=== PATIENT | male | born 1975 | race American Indian/Alaskan Native ===

== ENCOUNTER 2019-07-29 22:29 | Emergency (ER) | payer OTHER ==
[2019-07-30 00:46] LABS: Basophils # (Auto) 0.2 K/mm3 (0.0-0.1); Basophils % (Auto) 2.4 % (0.0-1.8); Eosinophils # (Auto) 0.3 K/mm3 (0.0-0.4); Eosinophils % (Auto) 5.1 % (0.0-4.3); Hemoglobin 14.8 gm/dl (11.8-15.2); Lymphocytes # (Auto) 3.2 K/mm3 (1.2-5.4); Lymphocytes % (Auto) 48.9 % (13.4-35.0); Mean Corpuscular HGB Conc 34 % (32-34); Mean Corpuscular Volume 85 fl (84-94); Monocytes # (Auto) 0.3 K/mm3 (0.0-0.8); Platelet Count 180 K/mm3 (140-440); Red Blood Count 5.06 M/mm3 (3.65-5.03); Red Cell Distribution Width 13.7 % (13.2-15.2)
[2019-07-30 01:00] LABS: Alanine Aminotransferase 15 units/L (7-56); Albumin 4.4 g/dL (3.9-5); BUN/Creatinine Ratio 9; Blood Urea Nitrogen 10 mg/dL (9-20); Calcium 9.3 mg/dL (8.4-10.2); Hemolysis Index 39
[2019-07-30] MEDS ORDERED: POTASSIUM CHLORIDE ER 20 MEQ TAB PO ONE (01:56)
[2019-07-30 02:05] LABS: Bilirubin,Urine NEG (Negative); Blood,Urine SM (Negative); Color,Urine Straw (Yellow); Mucus,Urine FEW /HPF; Protein,Urine <15 mg/dL mg/dL (Negative); Urobilinogen,Urine < 2.0 mg/dL (<2.0); WBC,Urine < 1.0 /HPF (0.0-6.0)
--- NOTE | 2019-07-30 02:29 | Emergency Department Report ---
ED Abdominal Pain HPI - General Chief Complaint: Abdominal Pain Stated Complaint: ABD/BACK/TOOTH PAIN Time Seen by Provider: 07/30/19 01:54 Source: patient Mode of arrival: Ambulatory Limitations: No Limitations - History of Present Illness Initial Comments: This is a 44-year-old -[place] male who presents to the emergency room with abdominal pain and low back pain for several months. Patient reports worsening pain over the past week it is been intermittent. Past medical history of hypertension. Patient states he was also diagnosed with colitis January 2019 at [facility]. Reports symptoms are similar to the last time. He was constipated and reports feeling constipated now. States pain is radiating from upper abdomen to his back. He denies nausea, vomiting, diarrhea, fever, chills, chest pain, metallic taste. MD Complaint: abdominal pain Onset/Timin -: week(s) Location: LUQ, RUQ Radiation: none Migration to: no migration Severity: moderate Severity scale (0 -10): 5 Quality: aching Consistency: intermittent Worsens With: nothing Associated Symptoms: denies other symptoms - Related Data Home Medications Medication Instructions Recorded Confirmed Last Taken HCTZ 25 mg PO DAILY 07/30/19 07/30/19 Unknown Previous Rx's Medication Instructions Recorded Last Taken Type hydroCHLOROthiazide [HCTZ] 25 mg PO QDAY #30 tablet 07/30/19 Unknown Rx Allergies Allergy/AdvReac Type Severity Reaction Status Date / Time No Known Allergies Allergy Unverified 07/30/19 00:01 ED Review of Systems ROS: Stated complaint: ABD/BACK/TOOTH PAIN Other details as noted in HPI Constitutional: denies: chills, fever Respiratory: denies: cough, shortness of breath, wheezing Cardiovascular: denies: chest pain, palpitations Gastrointestinal: abdominal pain. denies: nausea, diarrhea Musculoskeletal: back pain. denies: joint swelling, arthralgia Skin: denies: rash, lesions Neurological: denies: headache, weakness, paresthesias Psychiatric: denies: anxiety, depression ED Past Medical Hx - Past Medical History Previous Medical History?: Yes Hx Hypertension: Yes Additional medical history: Colitis - Surgical History Past Surgical History?: No - Social History Smoking Status: Current Every Day Smoker Substance Use Type: Marijuana - Medications Home Medications: Home Medications Medication Instructions Recorded Confirmed Last Taken Type HCTZ 25 mg PO DAILY 07/30/19 07/30/19 Unknown History hydroCHLOROthiazide [HCTZ] 25 mg PO QDAY #30 tablet 07/30/19 Unknown Rx ED Physical Exam - General Limitations: No Limitations General appearance: alert, in no apparent distress, obese - Respiratory Respiratory exam: Present: normal lung sounds bilaterally. Absent: respiratory distress - Cardiovascular Cardiovascular Exam: Present: regular rate, normal rhythm. Absent: systolic murmur, diastolic murmur, rubs, gallop - GI/Abdominal GI/Abdominal exam: Present: soft, tenderness (Left upper quadrant), normal bowel sounds. Absent: distended, guarding, rebound, rigid, organomegaly - Back Exam Back exam: Absent: CVA tenderness (R), CVA tenderness (L) - Neurological Exam Neurological exam: Present: alert, oriented X3, normal gait - Psychiatric Psychiatric exam: Present: normal affect, normal mood - Skin Skin exam: Present: warm, dry, intact, normal color. Absent: rash ED Course Vital Signs 07/29/19 07/30/19 22:35 02:37 Temperature 98.2 F Pulse Rate 75 70 Respiratory 18 Rate Blood Pressure 192/128 184/91 O2 Sat by Pulse 100 Oximetry ED Medical Decision Making - Lab Data Result diagrams: 07/30/19 00:19 07/30/19 00:19 Lab Results 07/30/19 07/30/19 07/30/19 Range/Units 00:19 00:19 Unknown WBC 6.5 (4.5-11.0) K/mm3 RBC 5.06 H (3.65-5.03) M/mm3 Hgb 14.8 (11.8-15.2) gm/dl Hct 43.0 (35.5-45.6) % MCV 85 (84-94) fl MCH 29 (28-32) pg MCHC 34 (32-34) % RDW 13.7 (13.2-15.2) % Plt Count 180 (140-440) K/mm3 Lymph % (Auto) 48.9 H (13.4-35.0) % [place] % (Auto) 5.0 (0.0-7.3) % Eos % (Auto) 5.1 H (0.0-4.3) % Baso % (Auto) 2.4 H (0.0-1.8) % Lymph # 3.2 (1.2-5.4) K/mm3 [place] # 0.3 (0.0-0.8) K/mm3 Eos # 0.3 (0.0-0.4) K/mm3 Baso # 0.2 H (0.0-0.1) K/mm3 Seg Neutrophils % 38.6 L (40.0-70.0) % Seg Neutrophils # 2.5 (1.8-7.7) K/mm3 Sodium 140 (137-145) mmol/L Potassium 3.3 L (3.6-5.0) mmol/L Chloride 98.4 (98-107) mmol/L Carbon Dioxide 26 (22-30) mmol/L Anion Gap 19 mmol/L BUN 10 (9-20) mg/dL Creatinine 1.1 (0.8-1.5) mg/dL Estimated GFR > 60 ml/min BUN/Creatinine Ratio 9 % Glucose 110 H (75-100) mg/dL Calcium 9.3 (8.4-10.2) mg/dL Total Bilirubin 0.20 (0.1-1.2) mg/dL AST 18 (5-40) units/L ALT 15 (7-56) units/L Alkaline Phosphatase 79 (35-129) units/L Total Protein 8.0 (6.3-8.2) g/dL Albumin 4.4 (3.9-5) g/dL Albumin/Globulin Ratio 1.2 % Urine Color Straw (Yellow) Urine Turbidity Clear (Clear) Urine pH 5.0 (5.0-7.0) Ur Specific [place] 1.013 (1.003-1.030) Urine Protein <15 mg/dl (Negative) mg/dL Urine Glucose (UA) Neg (Negative) mg/dL Urine Ketones Neg (Negative) mg/dL Urine Blood Sm (Negative) Urine Nitrite Neg (Negative) Urine Bilirubin Neg (Negative) Urine Urobilinogen < 2.0 (<2.0) mg/dL Ur Leukocyte Esterase Neg (Negative) Urine WBC (Auto) < 1.0 (0.0-6.0) /HPF Urine RBC (Auto) 2.0 (0.0-6.0) /HPF U Epithel Cells (Auto) < 1.0 (0-13.0) /HPF Urine Mucus Few /HPF - Radiology Data Radiology results: report reviewed CT ABDOMEN AND PELVIS WITH IV CONTRAST INDICATION: Left sided abdominal pain. COMPARISON: None available. TECHNIQUE: All CT scans at this facility use dose modulation, automated exposure control, iterative reconstruction or weight based dosing, when appropriate, to reduce radiation dose to as low as reasonably achievable. FINDINGS: Lung Bases: No significant abnormality. Skeletal System: No acute abnormality. ABDOMEN: Liver: No significant abnormality. Gallbladder: No significant abnormality. Bile Ducts: No significant abnormality. Pancreas: No significant abnormality. Spleen: No significant abnormality. Adrenals: No significant abnormality. Right Kidney: No significant abnormality. Left Kidney: No significant abnormality. Upper GI tract: No significant abnormality. Lymph Nodes: No significant adenopathy. Aorta: No significant abnormality. Additional Findings: No significant abnormality. PELVIS: Colon: No acute abnormality. Urinary Bladder and Distal Ureters: No significant abnormality. Appendix: No significant abnormality. Lymph Nodes: No significant adenopathy. Additional Findings: None. IMPRESSION: 1. No acute process in the abdomen or pelvis. - Medical Decision Making This is a 44y.o. male that presents with abdominal pain radiating to back for 1 week. Patient is stable and was examined by me. Blood pressure elevated on arri derrek. Given Catapres 0.1 mg p.o. once. Obtained CMP, CBC, & UA. Hypokalemia, given Klor-Con 40 mill EQ p.o. once. All other labs unremarkable. CT of abdomen obtained with no acute process in the abdomen or pelvis. Patient also requesting refills on blood pressure medication. Blood pressure reevaluated and trending down. Refill hydrochlorothiazide 25 mg p.o. daily, #30 with 0 refills. Referral to a primary care doctor for continued care. Discussed plan with patient and agreed to plan. No further questions noted by the patient. Discharged home in stable condition. Follow up with PCP in 2-3 days. Critical care attestation.: If time is entered above; I have spent that time in minutes in the direct care of this critically ill patient, excluding procedure time. ED Disposition Clinical Impression: Medication refill Abdominal pain Qualifiers: Abdominal location: generalized Qualified Code(s): R10.84 - Generalized abdominal pain Disposition: - TO HOME OR SELFCARE Is pt being admited?: No Condition: Stable Instructions: Abdominal Pain (ED), Hypertension (ED) Additional Instructions: Encourage stop smoking to reduce cardiovascular risk. Moderate caffeine consumption is acceptable. Begin and maintain aerobic exercise, with a goal of at least 30 minutes of moderate intensity, dynamic aerobic exercise (walking, jogging, cycling, or swimming) 5 days per week to total 150 minutes as tolerated or recommended by a physician. Take medication daily as prescribed. Follow up with Primary Care Provider in 1 week. Prescriptions: hydroCHLOROthiazide [HCTZ] 25 mg PO QDAY #30 tablet Referrals: [facility] [Outside] - 3-5 Days [facility] [Outside] - 3-5 Days [facility] [Outside] - 3-5 Days Time of Disposition: 03:59
[2019-07-30] MEDS ORDERED: cloNIDine 0.1 MG TAB PO ONE (02:30)
--- NOTE | 2019-07-30 03:42 | Cat Scan Report ---
CT ABDOMEN AND PELVIS WITH IV CONTRAST INDICATION: Left sided abdominal pain. COMPARISON: None available. TECHNIQUE: All CT scans at this facility use dose modulation, automated exposure control, iterative reconstructi on or weight based dosing, when appropriate, to reduce radiation dose to as low as reasonably achieva ble. FINDINGS: Lung Bases: No significant abnormality. Skeletal System: No acute abnormality. ABDOMEN: Liver: No significant abnormality. Gallbladder: No significant abnormality. Bile Ducts: No significant abnormality. Pancreas: No significant abnormality. Spleen: No significant abnormality. Adrenals: No significant abnormality. Right Kidney: No significant abnormality. Left Kidney: No significant abnormality. Upper GI tract: No significant abnormality. Lymph Nodes: No significant adenopathy. Aorta: No significant abnormality. Additional Findings: No significant abnormality. PELVIS: Colon: No acute abnormality. Urinary Bladder and Distal Ureters: No significant abnormality. Appendix: No significant abnormality. Lymph Nodes: No significant adenopathy. Additional Findings: None. IMPRESSION: 1. No acute process in the abdomen or pelvis. Signer Name: Jean Green MD Signed: 07/30/2019 3:37 AM Workstation Name: [id number]
[2019-07-30 04:38] VITALS: BP 162/117
== END 2019-07-30 04:35 | disposition home or self-care (01) ==
LOC: ED 22:29
DX: R10.12 Left upper quadrant pain (principal); R10.11 Right upper quadrant pain; I10 Essential (primary) hypertension; K52.9 Noninfective gastroenteritis and colitis, unspecified; F17.200 Nicotine dependence, unspecified, uncomplicated; F12.10 Cannabis abuse, uncomplicated; Z76.0 Encounter for issue of repeat prescription; Z79.899 Other long term (current) drug therapy
CPT/HCPCS: 36415; 74177; 80053; 81001; 85025; 99284; Q9967

== ENCOUNTER 2020-11-30 22:21 | Emergency (ER) | payer OTHER ==
[2020-11-30] MEDS ORDERED: KETOROLAC 30 MG/1 ML INJ IM ONE (23:14)
[2020-11-30] MEDS ORDERED: dexAMETHasone 20 MG/5 ML VIAL IM ONE (23:14)
--- NOTE | 2020-11-30 23:28 | Emergency Department Report ---
ED Back Pain/Injury HPI - General Chief Complaint: Back Pain/Injury Stated Complaint: LEG/BACK PAIN Source: patient Mode of arrival: Ambulatory - History of Present Illness Initial Comments: Patient is a 45-year-old -[place] male with a history of hypertension and chronic low back pain and sciatica presents to the ED with acute exacerbation of his chronic low back pain that radiates to the right leg for the last 1 week, worse in the last 2 days. Patient states that the pain is sharp, intermittent and worse with any active range of motion or weightbearing. Patient also states that occasionally the right leg experiences tingling sensation with worsening pain. Patient states that the symptoms are typical of his chronic low back pain with sciatica for which she has been taking Robaxin wi th no relief. Patient denies shortness of breath, fall, traumatic injury, chest pain, fever, chills, nausea, vomiting, heavy lifting, dysuria, urinary frequency and urgency, hematuria, penile discharge, abdominal pain or bilateral lower extremity weakness, saddle paresthesia, urinary retention or bowel incontinence. MD Complaint: back pain, other (Right leg pain) -: Gradual, month(s) (6) Similar Symptoms Previously: Yes Place: home Radiation: right leg (right leg) Severity: severe Severity scale (0 -10): 7 Quality: sharp, aching Improves With: none Worsens With: movement, walking Context: turning/twisting, bending Associated Symptoms: denies other symptoms. denies: confusion, chest pain, n umbness, difficulty walking, cough, difficulty urinating, diaphoresis, fever/chills, constipation, headaches, abdominal pain, loss of appetite, nausea/vomiting, rash, seizure, shortness of breath, other - Related Data Home Medications Medication Instructions Recorded Confirmed Last Taken HCTZ 25 mg PO DAILY 07/30/19 07/30/19 Unknown Previous Rx's Medication Instructions Recorded Last Taken Type Baclofen 20 mg PO Q12H PRN #30 tablet 11/30/20 Unknown Rx Gabapentin 300 mg PO BID PRN #60 cap 11/30/20 Unknown Rx Naproxen 500 mg PO Q12H PRN #30 tablet 11/30/20 Unknown Rx amLODIPine 10 mg PO DAILY #30 tab 11/30/20 Unknown Rx hydroCHLOROthiazide [HCTZ] 25 mg PO QDAY #30 tablet 11/30/20 Unknown Rx predniSONE [Deltasone] 60 mg PO QDAY #15 tab 11/30/20 Unknown Rx traMADoL [Ultram] 50 mg PO Q6HR PRN #12 tablet 11/30/20 Unknown Rx Allergies Allergy/AdvReac Type Severity Reaction Status Date / Time No Known Allergies Allergy Unverified 07/30/19 00:01 ED Review of Systems ROS: Stated complaint: LEG/BACK PAIN Other details as noted in HPI Constitutional: denies: chills, fever Eyes: denies: eye pain, eye discharge, vision change ENT: denies: ear pain, throat pain Respiratory: denies: cough, shortness of breath, wheezing Cardiovascular: denies: chest pain, palpitations Endocrine: no symptoms reported Gastrointestinal: denies: abdominal pain, nausea, diarrhea Genitourinary: denies: urgency, dysuria Musculoskeletal: back pain (Low back pain), arthralgia (Right leg), myalgia. denies: joint swelling Skin: denies: rash, lesions Neurological: denies: headache, weakness, paresthesias Psychiatric: denies: anxiety, depression Hematological/Lymphatic: denies: easy bleeding, easy bruising ED Past Medical Hx - Past Medical History Hx Hypertension: Yes Additional medical history: Chronic low back pain with sciatica; colitis - Social History Smoking Status: Current Every Day Smoker Substance Use Type: Marijuana - Medications Home Medications: Home Medications Medication Instructions Recorded Confirmed Last Taken Type HCTZ 25 mg PO DAILY 07/30/19 07/30/19 Unknown History Baclofen 20 mg PO Q12H PRN #30 tablet 11/30/20 Unknown Rx Gabapentin 300 mg PO BID PRN #60 cap 11/30/20 Unknown Rx Naproxen 500 mg PO Q12H PRN #30 tablet 11/30/20 Unknown Rx amLODIPine 10 mg PO DAILY #30 tab 11/30/20 Unknown Rx hydroCHLOROthiazide [HCTZ] 25 mg PO QDAY #30 tablet 11/30/20 Unknown Rx predniSONE [Deltasone] 60 mg PO QDAY #15 tab 11/30/20 Unknown Rx traMADoL [Ultram] 50 mg PO Q6HR PRN #12 tablet 11/30/20 Unknown Rx ED Physical Exam - General General appearance: alert, in no apparent distress - Head Head exam: Present: atraumatic, normocephalic, normal inspection - Eye Eye exam: Present: normal appearance, PERRL, EOMI Pupils: Present: normal accommodation - ENT ENT exam: Present: normal exam, normal orophraynx, mucous membranes moist, TM's normal bilaterally, normal external ear exam - Neck Neck exam: Present: normal inspection, full ROM - Respiratory Respiratory exam: Present: normal lung sounds bilaterally. Absent: respiratory distress, wheezes, rales, rhonchi, chest wall tenderness, accessory muscle use, decreased breath sounds, prolonged expiratory - Cardiovascular Cardiovascular Exam: Present: regular rate, normal rhythm, normal heart sounds. Absent: bradycardia, systolic murmur, diastolic murmur, rubs, gallop - GI/Abdominal GI/Abdominal exam: Present: soft, normal bowel sounds. Absent: tenderness, guarding, hyperactive bowel sounds, hypoactive bowel sounds, organomegaly - Extremities Exam Extremities exam: Present: normal inspection, full ROM, normal capillary refill. Absent: tenderness - Back Exam Back exam: Present: normal inspection, full ROM, tenderness (Palpable lumbosacral paraspinal musculoskeletal tenderness), muscle spasm, paraspinal tenderness. Absent: CVA tenderness (L), vertebral tenderness - Neurological Exam Neurological exam: Present: alert, oriented X3, CN II-XII intact, normal gait, reflexes normal - Psychiatric Psychiatric exam: Present: normal affect, normal mood - Skin Skin exam: Present: warm, dry, intact, normal color. Absent: rash ED Course Vital Signs 11/30/20 22:53 Temperature 98.9 F Pulse Rate 82 Respiratory 18 Rate Blood Pressure 166/111 O2 Sat by Pulse 96 Oximetry ED Medical Decision Making - Medical Decision Making This is a 45-year-old -[place] male with a history of hypertension and chronic low back pain and sciatica presents to the ED with acute exacerbation of his chronic low back pain that radiates to the right leg for the last 1 week, worse in the last 2 days. Patient states that the pain is sharp, intermittent and worse with any active range of motion or weightbearing. Patient also states that occasionally the right leg experiences tingling sensation with worsening pain. Patient states that the symptoms are typical of his chronic low back pain with sciatica for which she has been taking Robaxin with no relief. In the ED, patient is alert and oriented x3 and is not in any distress. Patient however appears to be in significant pain. Patient was treated for pain in the ED and on reevaluation, patient's pain is well controlled medications. Patient will discharge home on pain medications and advised to follow-up with his primary care physician in 5 to 7 days for reevaluation. Patient was advised return to the ED immediately if symptoms get worse. - Differential Diagnosis Chronic back pain; sciatica; muscle spasm; muscle strain; osteoarthritis Critical care attestation.: If time is entered above; I have spent that time in minutes in the direct care of this critically ill patient, excluding procedure time. ED Disposition Clinical Impression: Spasm of muscle of lower back, Acute exacerbation of chronic low back pain, Uncontrolled stage 2 hypertension Chronic low back pain with right-sided sciatica Qualifiers: Back pain laterality: right Qualified Code(s): M54.41 - Lumbago with sciatica, right side Disposition: TO HOME OR SELFCARE Is pt being admited?: No Does the pt Need Aspirin: No Condition: Stable Instructions: Muscle Cramps and Spasms, [id number], Sciatica, [id number], Hypertension, Adult, [id number], Chronic Back Pain, [id number], Hypertension (ED) Additional Instructions: Your symptoms are due to a condition called sciatica which is an impingement of nerves in your low back causing radiating pain to your right leg. Therefore take medication with food, drink plenty of fluids and follow-up with your primary care physician in 5 to 7 days for reevaluation. Return to the ED immediately if symptoms get worse. Prescriptions: amLODIPine 10 mg PO DAILY #30 tab Baclofen 20 mg PO Q12H PRN #30 tablet PRN Reason: Muscle Spasm predniSONE [Deltasone] 60 mg PO QDAY #15 tab Gabapentin 300 mg PO BID PRN #60 cap PRN Reason: Neuropathy hydroCHLOROthiazide [HCTZ] 25 mg PO QDAY #30 tablet Naproxen 500 mg PO Q12H PRN #30 tablet PRN Reason: Pain , Severe (7-10) traMADoL [Ultram] 50 mg PO Q6HR PRN #12 tablet PRN Reason: Pain Referrals: [facility] [Provider Group] - 3-5 Days Time of Disposition: 23:30 Print Language: TURKISH
[2020-11-30 23:34] VITALS: BP 166/111
== END 2020-12-01 00:26 | disposition home or self-care (01) ==
LOC: ED 22:21
DX: M54.41 Lumbago with sciatica, right side (principal); M62.830 Muscle spasm of back; I10 Essential (primary) hypertension; F17.200 Nicotine dependence, unspecified, uncomplicated; Z79.899 Other long term (current) drug therapy
CPT/HCPCS: 96372; 99282; J1100; J1885

== ENCOUNTER 2021-02-09 21:09 | Emergency (ER) | payer SELFPAY ==
[2021-02-10 01:00] VITALS: BP 163/116
--- NOTE | 2021-02-10 01:11 | Emergency Department Report ---
ED Extremity Problem HPI - General Chief complaint: Extremity Injury, Lower Stated complaint: HIP AND LEG PAIN Source: patient Mode of arrival: Ambulatory Limitations: No Limitations - History of Present Illness Initial comments: Patient is a 45-year-old -[place] male with a history of hypertension, chronic low back pain with sciatica and chronic osteoarthritis as well as colitis who presents to the ED with complaint of acute exacerbation of his chronic pain characterized by right hip and right knee pain for the last 2 weeks, worse in the last 2 days. Patient states that the pain is worse with any active range of motion, or in the morning when he wakes up but improves with movement. Patient states that the pain is similar to and typical of his chronic joint pains. Patient denies dizziness, syncope, fall, traumatic injury, numbness and tingling or weakness of lower extremities bilaterally, chest pain, shortness of breath, fever, chills, heavy lifting, nausea and vomiting or diarrhea. MD Complaint: extremity pain (right hip and knee pain), joint paint (right hip and knee pain) -: Gradual, year(s) (1) Location: right, lower extremity (hip and knee), knee (right knee pain), other (chronic right hip and knee pain) History of Same: Yes (chronic osteoarthritis) -: Yes arthralgia, No fever, No associated dyspnea, No associated chest pain Radiation: distal Severity scale (0 -10): 8 Quality: aching, sharp Consistency: constant Improves with: nothing Worsens with: weight bearing, walking, exertion, palpation Associated Symptoms: denies other symptoms, arthralgias (Right knee and hip pain). denies: chest pain, shortness of breath, fever, myalgias, rash - Related Data Home Medications Medication Instructions Recorded Confirmed Last Taken HCTZ 25 mg PO DAILY 07/30/19 07/30/19 Unknown Previous Rx's Medication Instructions Recorded Last Taken Type Gabapentin 300 mg PO BID PRN #60 cap 11/30/20 Unknown Rx amLODIPine 10 mg PO DAILY #30 tab 11/30/20 Unknown Rx hydroCHLOROthiazide [HCTZ] 25 mg PO QDAY #30 tablet 11/30/20 Unknown Rx traMADoL [Ultram] 50 mg PO Q6HR PRN #12 tablet 11/30/20 Unknown Rx Baclofen 20 mg PO Q12H PRN #30 tablet 02/10/21 Unknown Rx Naproxen 500 mg PO Q12H PRN #30 tablet 02/10/21 Unknown Rx predniSONE [Deltasone] 60 mg PO QDAY #15 tab 02/10/21 Unknown Rx Allergies Allergy/AdvReac Type Severity Reaction Status Date / Time No Known Allergies Allergy Unverified 07/30/19 00:01 ED Review of Systems ROS: Stated complaint: HIP AND LEG PAIN Other details as noted in HPI Constitutional: denies: chills, fever Eyes: denies: eye pain, eye discharge, vision change ENT: denies: ear pain, throat pain Respiratory: denies: cough, shortness of breath, wheezing Cardiovascular: denies: chest pain, palpitations Endocrine: no symptoms reported Gastrointestinal: denies: abdominal pain, nausea, diarrhea Genitourinary: denies: urgency, dysuria Musculoskeletal: arthralgia (right hip and knee pain), myalgia, other (right hip and knee pain). denies: back pain, joint swelling Skin: denies: rash, lesions Neurological: denies: headache, weakness, paresthesias Psychiatric: denies: anxiety, depression Hematological/Lymphatic: denies: easy bleeding, easy bruising ED Past Medical Hx - Past Medical History Hx Hypertension: Yes Additional medical history: Chronic low back pain with sciatica; colitis - Social History Smoking Status: Never Smoker Substance Use Type: None - Medications Home Medications: Home Medications Medication Instructions Recorded Confirmed Last Taken Type HCTZ 25 mg PO DAILY 07/30/19 07/30/19 Unknown History Gabapentin 300 mg PO BID PRN #60 cap 11/30/20 Unknown Rx amLODIPine 10 mg PO DAILY #30 tab 11/30/20 Unknown Rx hydroCHLOROthiazide [HCTZ] 25 mg PO QDAY #30 tablet 11/30/20 Unknown Rx traMADoL [Ultram] 50 mg PO Q6HR PRN #12 tablet 11/30/20 Unknown Rx Baclofen 20 mg PO Q12H PRN #30 tablet 02/10/21 Unknown Rx Naproxen 500 mg PO Q12H PRN #30 tablet 02/10/21 Unknown Rx predniSONE [Deltasone] 60 mg PO QDAY #15 tab 02/10/21 Unknown Rx ED Physical Exam - General Limitations: No Limitations General appearance: alert, in no apparent distress - Head Head exam: Present: atraumatic, normocephalic, normal inspection - Eye Eye exam: Present: normal appearance, PERRL, EOMI Pupils: Present: normal accommodation - ENT ENT exam: Present: normal exam, normal orophraynx, mucous membranes moist, TM's normal bilaterally, normal external ear exam - Neck Neck exam: Present: normal inspection, full ROM. Absent: tenderness - Respiratory Respiratory exam: Present: normal lung sounds bilaterally. Absent: respiratory distress, wheezes, rales, rhonchi, chest wall tenderness, accessory muscle use, decreased breath sounds, prolonged expiratory - Cardiovascular Cardiovascular Exam: Present: regular rate, normal rhythm, normal heart sounds. Absent: systolic murmur, diastolic murmur, rubs, gallop - GI/Abdominal GI/Abdominal exam: Present: soft, normal bowel sounds. Absent: tenderness, guarding, rebound, hyperactive bowel sounds, hypoactive bowel sounds, organomegaly - Extremities Exam Extremities exam: Present: normal inspection, tenderness (Plapable right knee and hip tenderness), normal capillary refill. Absent: pedal edema, joint swelling, calf tenderness - Back Exam Back exam: Present: normal inspection, full ROM. Absent: tenderness, CVA tenderness (R), CVA tenderness (L), muscle spasm, paraspinal tenderness, vertebral tenderness - Neurological Exam Neurological exam: Present: alert, oriented X3, CN II-XII intact, normal gait, reflexes normal - Psychiatric Psychiatric exam: Present: normal affect, normal mood - Skin Skin exam: Present: warm, dry, intact, normal color. Absent: rash ED Course Vital Signs 02/10/21 00:59 Temperature 97.9 F Pulse Rate 69 Respiratory 18 Rate Blood Pressure 163/116 O2 Sat by Pulse 100 Oximetry ED Medical Decision Making - Medical Decision Making This is a 45-year-old -[place] male with a history of hypertension, chronic low back pain with sciatica and chronic osteoarthritis as well as colitis who presents to the ED with complaint of acute exacerbation of his chronic pain characterized by right hip and right knee pain for the last 2 weeks, worse in the last 2 days. Patient states that the pain is worse with any active range of motion, or in the morning when he wakes up but improves with movement. Patient states that the pain is similar to and typical of his chronic joint pains. In the ED, patient is alert and oriented x3 and is not in any distress. Patient symptoms are likely chronic due to chronic osteoarthritis and pain. Patient was therefore discharged home on pain medications and advised to follow-up with her primary care physician in 7 to 10 days for reevaluation. Patient was advised to return to the ED immediately if symptoms get worse. - Differential Diagnosis chronic osteoathritis; sciatica; muscle spasm; muscle strain Critical care attestation.: If time is entered above; I have spent that time in minutes in the direct care of this critically ill patient, excluding procedure time. ED Disposition Clinical Impression: Chronic osteoarthritis, Muscle spasm of right leg Disposition: HOME / SELF CARE / HOMELESS Is pt being admited?: No Does the pt Need Aspirin: No Condition: Stable Instructions: Muscle Cramps and Spasms, [id number], Arthritis, [id number] Additional Instructions: Take medication with food, drink plenty of fluids and follow-up with your primary care physician in 5 to 7 days for reevaluation. Return to the ED immediately if symptoms get worse. Prescriptions: Baclofen 20 mg PO Q12H PRN #30 tablet PRN Reason: Muscle Spasm predniSONE [Deltasone] 60 mg PO QDAY #15 tab Naproxen 500 mg PO Q12H PRN #30 tablet PRN Reason: Pain , Severe (7-10) Referrals: [facility] [Provider Group] - 7-10 days Time of Disposition: 01:12 Print Language: MALAYSIAN
== END 2021-02-10 01:25 | disposition home or self-care (01) ==
LOC: ED 21:09
DX: M62.838 Other muscle spasm (principal); M19.90 Unspecified osteoarthritis, unspecified site; I10 Essential (primary) hypertension; Z79.899 Other long term (current) drug therapy
CPT/HCPCS: 99281

== ENCOUNTER 2021-04-10 23:30 | Emergency (ER) | payer SELFPAY ==
[2021-04-11] MEDS ORDERED: traMADol 50 MG TAB PO ONE (00:07)
[2021-04-11] MEDS ORDERED: AMOXICILLIN 500 MG CAP PO ONE (00:07)
--- NOTE | 2021-04-11 00:13 | Emergency Department Report ---
ED General Adult HPI - General Chief complaint: Dental/Oral Stated complaint: TOOTHACHE AND SPIDER BITE BEHIND EAR Time Seen by Provider: 04/11/21 00:04 Source: patient Mode of arrival: Ambulatory Limitations: No Limitations - History of Present Illness Initial comments: Patient 45-year-old male who presents for dental pain patient states 5/10 toothache that is sharp and achy exacerbated by hot and cold stimuli. Has history of same however has been unable to see the dentist. There is no facial swelling no fevers no chills no throat or ear pain. Pain is exacerbated by p.o. intake. Pain is relieved by nothing tried. Patient has additional history of hypertension has not taken her hypertensive medication today. Patient denies headache denies dizziness denies lightheaded no nausea no vomiting, no chest pain or shortness of breath. - Related Data Home Medications Medication Instructions Recorded Confirmed Last Taken HCTZ 25 mg PO DAILY 07/30/19 07/30/19 Unknown Previous Rx's Medication Instructions Recorded Last Taken Type Gabapentin 300 mg PO BID PRN #60 cap 11/30/20 Unknown Rx hydroCHLOROthiazide [HCTZ] 25 mg PO QDAY #30 tablet 11/30/20 Unknown Rx traMADoL [Ultram] 50 mg PO Q6HR PRN #12 tablet 11/30/20 Unknown Rx Baclofen 20 mg PO Q12H PRN #30 tablet 02/10/21 Unknown Rx Naproxen 500 mg PO Q12H PRN #30 tablet 02/10/21 Unknown Rx predniSONE [Deltasone] 60 mg PO QDAY #15 tab 02/10/21 Unknown Rx Amoxicillin [Trimox CAP] 500 mg PO Q8H 7 Days #21 capsule 04/11/21 Unknown Rx Ibuprofen [Motrin 800 MG tab] 800 mg PO Q8HR PRN #30 tablet 04/11/21 Unknown Rx amLODIPine 10 mg PO DAILY #30 tab 04/11/21 Unknown Rx Allergies Allergy/AdvReac Type Severity Reaction Status Date / Time No Known Allergies Allergy Unverified 07/30/19 00:01 ED Review of Systems ROS: Stated complaint: TOOTHACHE AND SPIDER BITE BEHIND EAR Other details as noted in HPI Constitutional: denies: chills, fever Eyes: denies: eye pain, eye discharge, vision change ENT: dental pain. denies: ear pain, throat pain Respiratory: denies: cough, shortness of breath, wheezing Cardiovascular: denies: chest pain, palpitations Endocrine: no symptoms reported Gastrointestinal: as per HPI Genitourinary: denies: urgency, dysuria Musculoskeletal: denies: back pain, joint swelling, arthralgia Skin: denies: rash, lesions Neurological: denies: headache, weakness, paresthesias Psychiatric: denies: anxiety, depression Hematological/Lymphatic: denies: easy bleeding, easy bruising ED Past Medical Hx - Past Medical History Previous Medical History?: Yes Hx Hypertension: Yes Additional medical history: Chronic low back pain with sciatica; colitis - Surgical History Past Surgical History?: No - Social History Smoking Status: Never Smoker Substance Use Type: None - Medications Home Medications: Home Medications Medication Instructions Recorded Confirmed Last Taken Type HCTZ 25 mg PO DAILY 07/30/19 07/30/19 Unknown History Gabapentin 300 mg PO BID PRN #60 cap 11/30/20 Unknown Rx hydroCHLOROthiazide [HCTZ] 25 mg PO QDAY #30 tablet 11/30/20 Unknown Rx traMADoL [Ultram] 50 mg PO Q6HR PRN #12 tablet 11/30/20 Unknown Rx Baclofen 20 mg PO Q12H PRN #30 tablet 02/10/21 Unknown Rx Naproxen 500 mg PO Q12H PRN #30 tablet 02/10/21 Unknown Rx predniSONE [Deltasone] 60 mg PO QDAY #15 tab 02/10/21 Unknown Rx Amoxicillin [Trimox CAP] 500 mg PO Q8H 7 Days #21 capsule 04/11/21 Unknown Rx Ibuprofen [Motrin 800 MG tab] 800 mg PO Q8HR PRN #30 tablet 04/11/21 Unknown Rx amLODIPine 10 mg PO DAILY #30 tab 04/11/21 Unknown Rx ED Physical Exam - General Limitations: No Limitations General appearance: alert, in no apparent distress - Head Head exam: Present: atraumatic, normocephalic - Eye Eye exam: Present: normal appearance, EOMI Pupils: Present: normal accommodation - ENT ENT exam: Present: mucous membranes moist, TM's normal bilaterally, normal external ear exam - Expanded ENT Exam Expanded Teeth exam: Present: dental caries, dental tenderness # (18) - Neck Neck exam: Present: normal inspection - Respiratory Respiratory exam: Present: normal lung sounds bilaterally. Absent: respiratory distress, wheezes, stridor - Cardiovascular Cardiovascular Exam: Present: regular rate, normal rhythm, normal heart sounds. Absent: systolic murmur, diastolic murmur, rubs, gallop - GI/Abdominal GI/Abdominal exam: Present: soft, normal bowel sounds. Absent: distended, tenderness - Rectal Rectal exam: Present: deferred - Extremities Exam Extremities exam: Present: normal inspection, full ROM. Absent: tenderness - Back Exam Back exam: Present: normal inspection, full ROM. Absent: tenderness - Neurological Exam Neurological exam: Present: alert, oriented X3 - Psychiatric Psychiatric exam: Present: normal affect, normal mood - Skin Skin exam: Present: warm, dry, intact, normal color. Absent: rash ED Course Vital Signs 04/10/21 23:38 Temperature 97.6 F Pulse Rate 81 Respiratory 18 Rate Blood Pressure 177/127 O2 Sat by Pulse 100 Oximetry ED Medical Decision Making - Medical Decision Making This is straightforward infected dental caries plan DC to home with prescriptions, follow-up with dentist tomorrow. Patient is tolerating p.o. intake there is no throat or ear pain no oral swelling airway is patent. No wheezing no stridor. Patient verbalized agreement and understanding with discharge plan patient DC'd home in stable condition at this time. Critical care attestation.: If time is entered above; I have spent that time in minutes in the direct care of this critically ill patient, excluding procedure time. ED Disposition Clinical Impression: Dental caries Disposition: HOME / SELF CARE / HOMELESS Is pt being admited?: No Does the pt Need Aspirin: No Condition: Stable Instructions: Dental Extraction, [id number], Dental Extraction, Care After, [id number] Additional Instructions: Take medications as prescribed, follow-up with your dentist tomorrow. Return to emergency department if symptoms worsen. Prescriptions: amLODIPine 10 mg PO DAILY #30 tab Ibuprofen [Motrin 800 MG tab] 800 mg PO Q8HR PRN #30 tablet PRN Reason: pain Amoxicillin [Trimox CAP] 500 mg PO Q8H 7 Days #21 capsule Referrals: [facility] [Provider Group] - 3-[address] [facility] [Outside] - 3-5 Days Forms: Work/School Release Form(ED) Time of Disposition: 00:13
[2021-04-11 01:29] VITALS: BP 154/90
== END 2021-04-11 01:28 | disposition home or self-care (01) ==
LOC: ED 23:30
DX: K02.9 Dental caries, unspecified (principal); Z79.899 Other long term (current) drug therapy
CPT/HCPCS: 99282